=== PATIENT | female | born 1955 | race Caucasian/White ===

== ENCOUNTER 2016-06-30 19:27 | Emergency (ER) | payer MEDICARE, OTHER ==
--- NOTE | ~2016-06-30 | CR181 ---
[facility] A Service of [facility] & [facility] RADIOLOGY TEXT RESULTS PATIENT: WILLIE CORDERO LOCATION: CFTX : 53 UNIT #: [id number] AGE: [address]: Tiffany Cherry APRN SEX: F ORDER DR: [id number] [facility] [address]. [place], [place] [address] [id number] MR#: [id number] Acc #: [id number] NAME: WILLIE CORDERO. : 1955 SEX: F STUDY DATE/TIME: 06/30/2016 20:23 UNIT: TX ROOM: STUDY DESCRIPTION: CR Lumbar Spine 2 or 3 Views Attending Physician: Tiffany Cherry A.P.R.N. Referring Physician: Primary Care Physician No Ordering Physician: Tiffany Cherry A.P.R.N. Primary Care Physician: Primary Care Physician No MEDICAL IMAGING REPORT This report is preliminary unless electronic signature is present EXAM Lumbar spine 3 views, 06/30/2016 HISTORY Low back pain beginning today. No known injury. Prior lumbar spine fusion. FINDINGS 3 views of the lumbar spine demonstrate no fracture. The posterior fusion with bilateral rods and pedicle screws at the L5 level with prosthetic disc at L4-5. The surgical hardware is intact. The disc spaces are normally maintained. Atherosclerotic calcification of the abdominal aorta. IMPRESSION Postsurgical changes at the L4-5 level. No acute abnormality in the lumbar spine Dictated by... Rodney Brown M.D. THIS IS AN ELECTRONICALLY VERIFIED REPORT Rodney Brown M.D. at 07/01/2016 2:18 PM LEW/samir TD: 07/01/2016 04:39 JOB #: [id number] MEDICAL IMAGING REPORT COPY
[~2016-06-30 19:27] MED LIST: ACIPHEX20 MG; ADVAIR 250-501 EAC1 IH; ADVAIR 250-501 EAC1 INH; ALBUTEROL 0.5ML INH; ALBUTEROL MININEB NEB; ALBUTEROL17 GM INH; ASPIRIN PO; CHANTIX1 MG PO; CRESTOR PO; DOLOPHINE HCL5 MG PO; FLEXERIL10 MG; KEFLEX500 MG PO; LOMOTIL TABLET1 TAB PO; LORTAB 7.5-5001 TAB; MELOXICAM15 MG PO; METHADOSE5 MG PO; MOBIC15 MG PO; NEBULIZER; NEURONTIN300 MG PO; OMEPRAZOLE20 M2 PO; OMEPRAZOLE40 M1 PO; PREDNISONE PO; PREMPRO 0.1 TAB 0.62 PO; PREMPRO 0.625/21 TAB PO; PRILOSEC PO; PRILOSEC20 M1 PO; PRILOSEC20 MG PO; PROTONIX PO; SERTRALINE HCL50 MG PO; SIMVASTATIN40 MG PO; SIMVASTATIN80 MG PO; SPIRIVA18 MCG INH; SYMBICORT80 INH; TRAMADOL HCL50 M2 PO; TRICOR PO; ULTRAM PO; XANAX1 MG PO; ZANAFLEX PO; ZITHROMAX PO; ZOCOR PO
[2016-10-19] MEDS ORDERED: DESYREL50 MG PO (11:38)
[2016-10-19] MEDS ORDERED: LOMOTIL WHITE2.5 M1 PO (11:38)
[2016-10-19] MEDS ORDERED: BACLOFEN10 MG PO (11:38)
[2016-10-19] MEDS ORDERED: ADVAIR 500-501 EACH INH (11:39)
[2016-10-19] MEDS ORDERED: SPIRIVA RESPIMAT4 G1 INH (11:39)
[2016-10-19] MEDS ORDERED: ALBUTEROL17 GM INH (11:39)
[2016-10-21] MEDS ORDERED: OMEPRAZOLE40 M1 PO (11:35)
[2016-10-21] MEDS ORDERED: GABAPENTIN300 MG PO (11:35)
[2016-10-29] MEDS ORDERED: TYLENOL #3 PO (07:38)
== END 2016-06-30 21:05 | disposition home or self-care (01) ==
LOC: CFTX 19:27
DX: S39.012A Strain of muscle, fascia and tendon of lower back, initial encounter (principal); J44.9 Chronic obstructive pulmonary disease, unspecified; K21.9 Gastro-esophageal reflux disease without esophagitis; K29.70 Gastritis, unspecified, without bleeding; F17.200 Nicotine dependence, unspecified, uncomplicated; E78.5 Hyperlipidemia, unspecified; Z88.5 Allergy status to narcotic agent; Z88.8 Allergy status to other drugs, medicaments and biological substances; Z98.890 Other specified postprocedural states; X58.XXXA Exposure to other specified factors, initial encounter; Y92.9 Unspecified place or not applicable
CPT/HCPCS: 72100; 99283

== ENCOUNTER → 2016-10-19 | Outpatient (CLI) | payer MEDICARE, OTHER ==
[~2016-10-19] MED LIST changes: +ADVAIR 500-501 EACH INH; +BACLOFEN10 MG PO; +DESYREL50 MG PO; +GABAPENTIN300 MG PO; +LOMOTIL WHITE2.5 M1 PO; +SPIRIVA RESPIMAT4 G1 INH; +TYLENOL #3 PO
--- NOTE | ~2016-10-19 | EKG ---
PATIENT: WILLIE CORDERO UNIT #: [id number] Ventricular Rate: 64 BPM Atrial Rate: 64 BPM P-R Interval: 182 ms QRS Duration: 86 ms Q-T Interval: 406 ms QTC Calculation(Bezet): 418 ms P Hanson: 72 degrees Calculated R Hanson: 33 degrees Calculated T Hanson: 36 degrees Diagnosis Line: Normal sinus rhythm Diagnosis Line: Normal ECG Diagnosis Line: When compared with ECG of 31-JAN-2014 04:59, Diagnosis Line: Vent. rate has decreased BY 37 BPM Diagnosis Line: Nonspecific T wave abnormality no longer evident Diagnosis Line: in Anterior leads Diagnosis Line: Confirmed by EDIL MCMILLAN MD ([id number]) on Diagnosis Line: 10/20/2016 10:55:20 AM INTERPRETING HERMINIA ARNDT
== END | disposition home or self-care (01) ==
LOC: CAMB 11:03
DX: Z01.810 Encounter for preprocedural cardiovascular examination (principal)
CPT/HCPCS: 93005

== ENCOUNTER → 2016-10-25 | Day surgery (SDC) | payer MEDICARE, OTHER | END | disposition home or self-care (01) | LOC: CSUR 10:33 | DX: K80.20 Calculus of gallbladder without cholecystitis without obstruction (principal); Z53.8 Procedure and treatment not carried out for other reasons | CPT/HCPCS: J1644 ==

== ENCOUNTER → 2016-10-29 | Day surgery (SDC) | payer MEDICARE, OTHER ==
--- NOTE | ~2016-10-29 | OR ---
Unit #: [id number] #: [id number] Patient: WILLIE CORDERO [id number] [address] [address] [id number] O MR#: [id number] NAME: WILLIE CORDERO ROOM: Date of Procedure: 10/29/2016 Admission Date: 10/29/2016 Surgeon: Tavo Watkins M.D. : 1955 Attending Physician: Tavo Watkins M.D. OPERATIVE REPORT PREOPERATIVE DIAGNOSIS Chronic cholecystitis. POSTOPERATIVE DIAGNOSIS Acute cholecystitis. PROCEDURE PERFORMED Laparoscopic cholecystectomy. APPLICATIONS PROGRAMMER ANALYST None. ANESTHESIA General anesthesia. ESTIMATED BLOOD LOSS Minimal. IV FLUIDS 500 crystalloid. COMPLICATIONS None. INDICATIONS FOR PROCEDURE The patient is a 61-year-old with right upper quadrant abdominal pain. Ultrasound shows multiple gallstones. DESCRIPTION OF PROCEDURE The patient was taken to the operating theater and placed in supine position. General anesthesia was induced. The abdomen was prepped and draped. A 5-mm Optiview trocar was placed in the right upper quadrant without difficulty. The abdomen was insufflated to 15 mmHg with CO2. Under direct vision, I placed a subxiphoid 10 mm, right lateral 5 mm, umbilical 5 mm port. General inspection of the abdomen revealed distended gallbladder with multiple adhesions. These adhesions were taken down. The gallbladder was retracted up over the liver. I dissected the neck of the gallbladder and identified the cystic duct. Its junction with the gallbladder was confirmed. It was thus skeletonized, doubly hemoclipped, and divided. The cystic artery laid immediately posterior. This was skeletonized, doubly hemoclipped, and divided. The gallbladder was removed from the gallbladder bed with Bovie electrocautery and then Unit #: [id number] #: [id number] Patient: WILLIE CORDERO removed via the subxiphoid port. Hemostasis was adequate. I irrigated thoroughly with normal saline and aspirate all fluids dry. I then removed the ports and closed the fascia with 0 Vicryl and skin with 4-0 Vicryl. The patient tolerated the procedure well and sent to recovery room in good condition. Dictated by... Jj Oliver/paula TD: 10/30/2016 01:29 JOB #: [id number] OPERATIVE REPORT Page 1 of 1 X Tavo Watkins MD PROCEDURE OPERATIVE NOTE
== END | disposition home or self-care (01) ==
LOC: CSUR 06:47
DX: K81.2 Acute cholecystitis with chronic cholecystitis (principal); K21.9 Gastro-esophageal reflux disease without esophagitis; K44.9 Diaphragmatic hernia without obstruction or gangrene; J44.9 Chronic obstructive pulmonary disease, unspecified; E78.00 Pure hypercholesterolemia, unspecified; M19.90 Unspecified osteoarthritis, unspecified site; E78.5 Hyperlipidemia, unspecified; Z88.5 Allergy status to narcotic agent; Z87.891 Personal history of nicotine dependence; Z79.891 Long term (current) use of opiate analgesic; Z79.899 Other long term (current) drug therapy; Z98.49 Cataract extraction status, unspecified eye; Z88.8 Allergy status to other drugs, medicaments and biological substances; Z98.890 Other specified postprocedural states
CPT/HCPCS: 88304; J0330; J0690; J1100; J1644; J2250; J2405; J2550; J2710; J3010